=== PATIENT | female | born 1955 | race Caucasian/White ===

== ENCOUNTER 2022-11-01 13:19 | Emergency (ER) | payer MEDICARE, BC, SELFPAY ==
--- NOTE | ~2022-11-01 | XR_ITS ---
XR chest 1V portable 11/01/2022 14:25 Indication: Status post fall. Shortness of breath. Procedure: AP portable chest Comparison: No prior studies for comparison. Findings: Heart size is normal. No focal air space disease, pulmonary edema, pleural effusion or susp ected pneumothorax. There are partially calcified breast implants. No acute osseous abnormality. Impression: 1: No acute cardiopulmonary disease. Reviewed, dictated and finalized at location A. Impression: 1: No acute cardiopulmonary disease.
--- NOTE | ~2022-11-01 | CT_ITS ---
EXAMINATION: CTA chest PE protocol DATE: 11/01/2022 14:56 INDICATION: Shortness of breath. Elevated d-dimer. TECHNIQUE: Computed tomography angiography (CTA) of the chest was performed with 100 mL Omnipaque-350 intravenous contrast timed to evaluate the pulmonary arteries. Coronal maximum intensity projection 3D-reconstructions were created by the technologist. Automated exposure control and iterative reconst ruction technique were employed. Exam dose: 157.06 mGy-cm total exam DLP. COMPARISON: November 01, 2022 portable AP chest FINDINGS: There is diagnostic contrast enhancement of the pulmonary arteries and no evidence of pulmo nary embolism. No thoracic aortic aneurysm or dissection. There is aortic, great vessel and coronary atherosclerotic calcification. No hilar or mediastinal mass lesion or lymphadenopathy. Heart size is within normal range. No pericardial or pleural effusion. Bilateral apical scarring. Moderately prominent emphysematous changes of the lungs. There is minimal bilateral dependent lower l obe atelectasis. No pulmonary infiltrate or consolidation or pulmonary mass lesion is evident. Small sliding hiatal hernia. Left fat-containing foramen of Bochdalek hernia. Bilateral breast implants. Probable old mild compression fractures of T9, T11 and L2. Degenerative changes of the lower cervical , thoracic and upper lumbar spine. IMPRESSION: No evidence of pulmonary embolism Emphysema Small sliding hiatal hernia Probable old mild compression fractures of T9, T11 and T12 Reviewed, dictated and finalized at [facility]. Reviewed, dictated and finalized at location L.
--- NOTE | ~2022-11-01 | CT_ITS ---
EXAMINATION: CT brain wo con DATE: 11/01/2022 14:26 INDICATION: Status post fall. Right-sided head pain. TECHNIQUE: Computed tomography (CT) of the head was performed without intravenous contrast. The dose- length product was 605.33 mGy-cm. Automated exposure control and iterative reconstruction technique w ere employed. COMPARISON: No prior studies for comparison. FINDINGS: Normal brain parenchymal volume. No ventriculomegaly or midline shift. Basilar cisterns are patent. No acute intracranial hemorrhage, infarction, mass or mass effect. Paranasal sinuses and mas toids are pneumatized. There is intracranial atherosclerosis. IMPRESSION: 1. No acute intracranial abnormality. Reviewed, dictated and finalized at location A.
[2022-11-01 13:20] VITALS: BP 152/83; PULSE 87; RESP 17; TEMP 36.2; O2SAT 97
--- NOTE | 2022-11-01 13:33 | ECG_ITS ---
Measurements Intervals [place] Rate: 87 P: 63 NM: 136 QRS: 245 QRSD: 129 T: 72 QT: 423 QTc: 509 Interpretive Statements SINUS RHYTHM WITH OCCASIONAL SUPRAVENTRICULAR PREMATURE COMPLEXES INDETERMINATE AXIS RIGHT BUNDLE BRANCH BLOCK [120+ ms QRS DURATION, UPRIGHT V1, 40+ ms S IN I/aVL/V4/V5/V6] LEFT POSTERIOR FASCICULAR BLOCK [QRS AXIS > 109, INFERIOR Q] ABNORMAL ECG NO PREVIOUS ECG AVAILABLE FOR COMPARISON Electronically Signed On 11-01-2022 16:34:52 CDT by Khang Welch M.D.
[2022-11-01 13:47] VITALS: PULSE 75; RESP 16; O2SAT 97
[2022-11-01] MEDS: IPRATROPIUM 0.5 MG/ALBUTEROL SULFATE 2.5 MG AMPUL.NEB 3 ML INHALATION (13:48)
[2022-11-01 13:55] VITALS: PULSE 80; RESP 12; O2SAT 100
[2022-11-01] MEDS: KETOROLAC 30 MG/ML VIAL (*BKC) IM (14:03)
[2022-11-01 14:11] LABS: Basophils Absolute Auto 0.02 K/mm3 (0.00-0.10); Basophils Percent Auto 0.4 % (0.0-1.0); Eosinophils Absolute Auto 0.04 K/mm3 (0.02-0.50); Eosinophils Percent Auto 0.9 % (1.0-6.0); Hematocrit 38.8 % (35.0-42.0); Hemoglobin 12.5 g/dL (11.7-13.8); Immature Granulocyte Absolute 0.01 K/mm3 (0.00-0.00); Immature Granulocyte Percent A 0.2 % (0.0-0.0); Lymphocytes Absolute Auto 1.66 K/mm3 (1.10-4.50); Lymphocytes Percent Auto 36.8 % (18.0-42.0); Mean Corpuscular HGB Conc 32.2 g/dL (32.0-36.0); Mean Corpuscular Hemoglobin 31.9 pg (27.0-31.0); Mean Platelet Volume 10.1 fl (9.2-11.8); Monocytes Absolute Auto 0.41 K/mm3 (0.10-0.90); Monocytes Percent Auto 9.1 % (2.0-11.0); Neutrophils Absolute Auto 2.4 K/mm3 (1.7-7.2); Neutrophils Percent Auto 52.6 % (50.0-70.0); Platelet Count Result 243 K/mm3 (150-420); Red Blood Count 3.92 M/mm3 (4.20-5.40); White Blood Count 4.5 K/mm3 (4.8-10.8)
[2022-11-01 14:32] LABS: Alanine Aminotransferase 63 U/L (14-59); Alkaline Phosphatase 134 U/L (46-116); Anion Gap 11 mmol/L (8-16); Aspartate Amino Transferase 50 U/L (15-37); Bilirubin,Total 0.5 mg/dL (0.00-1.00); Blood Urea Nitrogen 11 mg/dL (7-18); Calcium 8.7 mg/dL (8.5-10.1); Carbon Dioxide 25 mmol/L (21-32); Chloride 106 mmol/L (98-108); D Dimer 1.03 mg/L (0.19-0.50); Estimated Glomerular Filt Rate > 60; Glucose 138 mg/dL (70-99); NT Pro B Type Natriuretic Pept 550 pg/mL (0-125); Osmolality Calculated 295 mOsm/kg (285-295); Potassium 3.2 mmol/L (3.5-5.1); Sodium 142 mmol/L (136-145); Total Protein 6.7 g/dL (6.4-8.2); Troponin I 11.4 ng/L (0.00-60.4)
[2022-11-01 14:48] LABS: Influenza A QL RT-PCR Negative (Negative); Influenza B QL RT-PCR Negative (Negative); SARS-CoV-2 RNA PCR Negative (Negative)
[2022-11-01 14:49] LABS: RSV RNA, RT-PCR Negative (Negative)
--- NOTE | 2022-11-01 15:33 | ED.SOB ---
HPI - SOB/Dyspnea General Chief Complaint: Shortness of Breath/Dyspnea Stated Complaint: shortness of breath Time Seen by Provider: 11/01/22 13:22 Source: patient Mode of arrival: ambulatory Limitations: no limitations History of Present Illness HPI Narrative: 67-year-old female that presents with shortness of breath with history of being admitted to local hospital for pneumonia and effusion, currently vitals are stable the patient states that she did fall and hit her head and passed out and has headache this occurred about a week ago currently no fever chills no chest pain no abdominal pain no flank pain. MD elicited complaint: shortness of breath and cough Onset (ago): day(s) Related Data Allergies Allergy/AdvReac Type Severity Reaction Status Date / Time NALBUPHINE HCL Allergy Unknown Uncoded 11/01/22 13:31 Review of Systems Review of Systems: All systems reviewed & are unremarkable except as noted in HPI and below PMFSH Past Medical History Medical History COPD (chronic obstructive pulmonary disease) Exam Const: General: healthy appearing Nutritional Appearance: well nourished Orientation/consciousness: patient oriented x3 Limitations: no limitations HENMT: Head: normal to inspection Teeth and gingiva: dentition normal Eyes: Conjunctivae: conjunctivae normal Pupils: Equal, round and reactive pupils present Neck: Neck: normal visual inspection Chest: Chest palpation & inspection: normal inspection of the chest Resp: Effort & Inspection: normal respiratory effort Auscultation: clear to auscultation bilaterally Cardio: Rate: regular rate GI: GI Palp: Yes Soft to palpation Auscultation: normal bowel sounds : General: Yes bladder normal to palpation Skin: General skin exam: normal color Rashes: no rashes Wounds: no wounds Neuro: General: patient oriented x3 Extrem: General: normal to inspection Psych: Mental Status: mental status grossly normal Affect: normal affect Course Course Emergency Course: CT and chest x-ray reviewed with patient with no acute findings, patient had an elevated D-dimer and CTA was performed which showed no pulmonary embolism. Patient received breathing treatment and feels much better and also received Toradol and headache has markedly improved. Vital Signs Vital signs: Vital Signs Pulse Rate 75 11/01/22 13:47 Respiratory Rate 16 11/01/22 13:47 Pulse Oximetry 97 04/20/23 13:47 Pulse Rate 80 11/01/22 13:55 Respiratory Rate 12 11/01/22 13:55 Pulse Oximetry 100 11/01/22 13:55 MDM - SOB/Dyspnea Lab Data 11/01/22 14:05 11/01/22 14:05 Labs: Lab Results 11/01/22 11/01/22 11/01/22 Range/Units 14:05 14:05 14:05 WBC 4.5 L (4.8-10.8) K/mm3 RBC 3.92 L (4.20-5.40) M/mm3 Hgb 12.5 (11.7-13.8) g/dL Hct 38.8 (35.0-42.0) % MCV 99.0 (78.0-102.0) fL MCH 31.9 H (27.0-31.0) pg MCHC 32.2 (32.0-36.0) g/dL RDW 14.0 (11.6-14.4) % Plt Count 243 (150-420) K/mm3 MPV 10.1 (9.2-11.8) fl Immature Gran % (Auto) 0.2 H (0.0-0.0) % Neut % (Auto) 52.6 (50.0-70.0) % Lymph % (Auto) 36.8 (18.0-42.0) % [place] % (Auto) 9.1 (2.0-11.0) % Eos % (Auto) 0.9 L (1.0-6.0) % Baso % (Auto) 0.4 (0.0-1.0) % Lymph # (Auto) 1.66 (1.10-4.50) K/mm3 [place] # (Auto) 0.41 (0.10-0.90) K/mm3 Eos # (Auto) 0.04 (0.02-0.50) K/mm3 Baso # (Auto) 0.02 (0.00-0.10) K/mm3 Abs Immat Gran (auto) 0.01 H (0.00-0.00) K/mm3 Absolute Neuts (auto) 2.4 (1.7-7.2) K/mm3 Absolute Nucleated RBC 0.00 (0.00-0.00) K/mm3 Nucleated RBC % 0.0 (0-0.0) % D-Dimer 1.03 H* (0.19-0.50) mg/L Sodium 142 (136-145) mmol/L Potassium 3.2 L (3.5-5.1) mmol/L Chloride 106 (98-108) mmol/L Carbon Dioxide 25 (21-32) mmol/L Anion Gap 11 (8-16) mmol/L BUN 11 (7-18) mg/dL Creatinine 0.71
[2022-11-01 15:49] VITALS: BP 169/96; PULSE 70; RESP 17; TEMP 36.8; O2SAT 95
== END 2022-11-01 15:49 | disposition home or self-care (01) ==
PROVIDERS: Emergency Provider Emergency Medicine
DX: J44.9 Chronic obstructive pulmonary disease, unspecified (principal); Z20.822 Contact with and (suspected) exposure to COVID-19
CPT/HCPCS: 36415; 70450; 71045; 71275; 80053; 83880; 84484; 85025; 85380; 87637; 93005; 94640; 96372; 99284; J1885; Q9967